=== PATIENT | female | born 1995 ===

== ENCOUNTER 2018-05-03 05:53 | Inpatient (IN) | payer MEDICAID ==
[2018-05-03] VITALS (9 sets, daily range): BP systolic 129–139; BP diastolic 63–84; Ht 170.2 cm; Wt 142.0 kg
[~2018-05-03] VITALS: Ht 170.2 cm; Wt 142.0 kg
[2018-05-03] MEDS ORDERED: PRENAVITE1 TAB PO (06:11)
[2018-05-03 07:04] LABS: HEMATOCRIT 31.2 % (36.0-48.0); HEMOGLOBIN 10.5 g/dL (12-16); MCH 28.2 pg (26.0-34.0); MCHC 33.7 g/dL (31.0-37.0); MCV 83.9 fL (80.0-100.0); MEAN PLATELET VOLUME 10.8 fL (7.4-10.4); RBC 3.72 10x6/uL (4.00-5.40); RDW 13.9 % (11.5-14.5); WBC 10.1 10x3/uL (4.8-10.8)
[2018-05-03 12:57] LABS: BASOPHILS 0.1 % (0-2); EOSINOPHILS 1.3 % (0-7); HEMATOCRIT 28.7 % (36.0-48.0); HEMOGLOBIN 9.7 g/dL (12-16); IMMATURE GRANULOCYTES 0.5 % (0-5); LYMPHOCYTES 14.9 % (15-50); MCH 28.1 pg (26.0-34.0); MCHC 33.8 g/dL (31.0-37.0); MCV 83.2 fL (80.0-100.0); MEAN PLATELET VOLUME 10.7 fL (7.4-10.4); MONOCYTES 10.7 % (2-11); NEUTROPHILS 72.5 % (40-80); PLATELET COUNT 188 10x3/uL (130-400); RBC 3.45 10x6/uL (4.00-5.40); RDW 13.8 % (11.5-14.5); WBC 10.4 10x3/uL (4.8-10.8)
[2018-05-04 00:21] VITALS: BP 123/65
[2018-05-04 06:45] LABS: BASOPHILS 0.1 % (0-2); EOSINOPHILS 0.6 % (0-7); HEMATOCRIT 27.6 % (36.0-48.0); HEMOGLOBIN 9.1 g/dL (12-16); IMMATURE GRANULOCYTES 0.5 % (0-5); LYMPHOCYTES 9.3 % (15-50); MCV 84.9 fL (80.0-100.0); MEAN PLATELET VOLUME 11.3 fL (7.4-10.4); MONOCYTES 10.5 % (2-11); PLATELET COUNT 209 10x3/uL (130-400); RBC 3.25 10x6/uL (4.00-5.40); RDW 13.9 % (11.5-14.5)
[2018-05-04 06:46] LABS: WBC 16.3 10x3/uL (4.8-10.8)
[2018-05-04 07:22] LABS: RAPID PLASMA REAGIN Non Reactive (Non Reactive)
[2018-05-04 19:52] VITALS: BP 141/71
[2018-05-05 02:41] VITALS: BP 132/83
[2018-05-05 08:23] VITALS: BP 137/76
[2018-05-05] MEDS ORDERED: OXYCODONE-APAP1 T10 PO (09:43)
[2018-05-05] MEDS ORDERED: MOTRIN600 MG PEG (09:43)
[2018-05-05] MEDS ORDERED: FERROUS SULFAT325 MG PO (09:44)
[2018-05-05] MEDS ORDERED: ACEROLA C500 MG (09:44)
== END 2018-05-05 11:10 | disposition home or self-care (01) | DRG 765 ==
LOC: D.LD 05:53 → D.SDCHOLD 07:30 → D.LD 05-05 11:10
PROVIDERS: Obstetrics & Gynecology
PROC: 10D00Z1 Extraction of Products of Conception, Low, Open Approach (ICD-10-PCS; principal; 2018-05-03 07:30)
DX: O34.83 Maternal care for other abnormalities of pelvic organs, third trimester (principal); O36.0930 Maternal care for other rhesus isoimmunization, third trimester, not applicable or unspecified; N94.89 Other specified conditions associated with female genital organs and menstrual cycle; Z68.41 Body mass index [BMI] 40.0-44.9, adult; E66.01 Morbid (severe) obesity due to excess calories; O99.214 Obesity complicating childbirth; Z37.0 Single live birth; Z3A.39 39 weeks gestation of pregnancy